=== PATIENT | female | born 1990 | race Caucasian/White ===

== ENCOUNTER 2020-04-09 11:41 | Outpatient (CLI) | payer MEDICAID, SELFPAY ==
--- NOTE | ~2020-04-09 | US_ITS ---
CORRECTED REPORT DESCRIPTION CORRECTED. 04/10/2020 SE EXAMINATION: US OB <=14 wk fetus w TV DATE: 04/09/2020 12:33 INDICATION: Ectopic with pelvic pain TECHNIQUE: Real-time pelvic ultrasound utilizing both a transvaginal and transabdominal probe was performed. The interpreting radiologist was not present for the study. COMPARISON: None. FINDINGS: The uterus measures 6.7 x 5.2 x 4.6 cm. There is an intrauterine gestational sac. A yolk sac and pole are identified. The crown rump length measures 6 mm, which correlates with an estimated gestational age of 6 weeks and 5 days. heart motion is identified measuring 120 beats per minute (bpm) by M-mode Doppler. 1.9 x 1.2 x 0.3 cm hypoechoic subchorionic hematoma. The right ovary measures 4.1 x 3.0 x 4.0 cm. 2.0 cm thick-walled centrally cystic likely corpus luteum cyst in the right ovary. The left ovary measures 2.5 x 2.1 x 2.6 cm. There are several additional subcentimeter ovarian cysts/follicles in both ovaries, more numerous on the left. There is small amount of anechoic free fluid in the pelvis on both the left and right adnexa. IMPRESSION: 1. Single living fetus with heart rate of 120 bpm. 2. Gestational age by ultrasound of 6 weeks 3 day(s) +/- 4 day(s) with ultrasound estimated date of delivery (JT) of 11/30/2020. 3. Small subchorionic hematoma. Reviewed, dictated and finalized at location B. MTDD IMPRESSION: 1. Single living fetus with heart rate of 120 bpm. 2. Gestational age by ultrasound of 6 weeks 3 day(s) +/- 4 day(s) with ultraso und estimated date of delivery (JT) of 11/30/2020. 3. Small subchorionic hematoma.
== END 2020-04-09 11:42 | disposition home or self-care (01) ==
PROVIDERS: Visit Provider Obstetrics & Gynecology
DX: O46.91 Antepartum hemorrhage, unspecified, first trimester (principal); Z3A.01 Less than 8 weeks gestation of pregnancy
CPT/HCPCS: 76801; 76817

== ENCOUNTER 2020-04-10 11:39 | Outpatient (CLI) | payer OTHER, MEDICAID, SELFPAY ==
[2020-04-10 13:50] LABS: Hemoglobin 14.1 g/dL (12.0-15.0); Mean Corpuscular HGB Conc 34.4 g/dl (32-36); Mean Corpuscular Hemoglobin 30.3 pg (26-34); Mean Corpuscular Volume 88.2 fl (80-100); Mean Platelet Volume 10.6 fl (7.4-10.4); Platelet Count Result 319 k/mm3 (150-375); Red Blood Count 4.65 M/mm3 (4.2-5.4); Red Cell Distribution Width 13.2 % (11.5-14.5); White Blood Count 8.8 K/mm3 (4.5-10.0)
[2020-04-10 14:06] LABS: Glucose 146 mg/dL (65-105)
[2020-04-10 14:46] LABS: HIV 1/2 Ab P24 Ag Result Negative (Negative)
[2020-04-10 14:59] LABS: Hepatitis B Surface Antigen Negative (Negative)
[2020-04-10 15:04] LABS: Rubella IgG Antibody 27.4 IU/ML
[2020-04-13 08:57] LABS: Rapid Plasma Reagin Non-Reactive (NonReactive)
[2020-04-14 14:29] LABS: Varicella IgM Antibody <=0.90 (<=0.90)
== END 2020-04-10 11:40 | disposition home or self-care (01) ==
LOC: ANHLAB 11:43
PROVIDERS: Visit Provider Obstetrics & Gynecology
DX: N92.5 Other specified irregular menstruation (principal); E66.9 Obesity, unspecified
CPT/HCPCS: 36415; 82947; 84702; 85027; 85461; 86592; 86644; 86703; 86747; 86762; 86787; 87086; 87088; 87340; G0432

== ENCOUNTER 2021-09-23 10:53 | Outpatient (CLI) | payer BC, SELFPAY ==
--- NOTE | ~2021-09-23 | XR_ITS ---
EXAMINATION: XR chest 2V DATE: 09/23/2021 12:06 INDICATION: Productive cough. Left-sided chest pain. TECHNIQUE: PA and lateral views of the chest were obtained. COMPARISON: None FINDINGS: The lungs are clear with no focal airspace opacities, pulmonary edema, pleural effusion or pneumothor ax. The cardiomediastinal silhouette is normal. Visualized bones and soft tissues are unremarkable. IMPRESSION: 1. Normal chest radiograph. Reviewed, dictated and finalized at location A. WORKER IMPRESSION: 1. Normal chest radiograph.
[2021-09-23 11:21] LABS: Basophils Absolute Auto 0.1 K/mm3 (0.0-0.1); Basophils Percent Auto 0.5 % (0.2-1.2); Eosinophils Absolute Auto 0.1 K/mm3 (0-0.3); Eosinophils Percent Auto 1.2 % (0-4.4); Hematocrit 40.6 % (37.0-47.0); Hemoglobin 13.6 g/dL (12.0-15.0); Immature Granulocyte Absolute 0.02 K/mm3 (0.00-0.031); Immature Granulocyte Percent A 0.2 % (0-0.5); Lymphocytes Absolute Auto 3.46 K/mm3 (0.9-3.2); Lymphocytes Percent Auto 34.7 % (18.3-44.2); Mean Corpuscular HGB Conc 33.5 g/dl (32-36); Mean Corpuscular Hemoglobin 30.8 pg (26-34); Mean Corpuscular Volume 91.9 fl (80-100); Monocytes Absolute Auto 0.7 K/mm3 (0.1-0.6); Monocytes Percent Auto 6.5 % (2.6-8.5); Neutrophils Absolute Auto 5.7 K/mm3 (1.3-6.7); Neutrophils Percent Auto 56.9 % (45.5-73.1); Platelet Count Result 420 k/mm3 (150-375); Red Blood Count 4.42 M/mm3 (4.2-5.4); Red Cell Distribution Width 13.3 % (11.5-14.5)
--- NOTE | 2021-09-23 11:33 | ECG_ITS ---
Measurements Intervals [place] Rate: 71 P: 52 MI: 150 QRS: 14 QRSD: 89 T: 31 QT: 391 QTc: 425 Interpretive Statements SINUS RHYTHM BORDERLINE T WAVE ABNORMALITY- ANT/INF LEADS BASELINE ARTIFACT- II, III, AVF, V4 BORDERLINE ECG Electronically Signed On 09-23-2021 12:25:51 [employer] by Mars Hernandez D.O.
[2021-09-23 11:35] LABS: Alanine Aminotransferase 22 U/L (4-35); Albumin Level 4.3 g/dL (3.5-5.1); Alkaline Phosphatase 44 U/L (38-126); Amylase 62 U/L (30-110); Anion Gap 8 mmol/L (8-16); Aspartate Amino Transferase 23 U/L (14-36); Bilirubin,Total 0.4 mg/dL (0.2-1.3); Blood Urea Nitrogen 12 mg/dL (7-17); Calcium 9.1 mg/dL (8.4-10.2); Carbon Dioxide 28 mmol/L (22-30); Chloride 102 mmol/L (98-107); Cholesterol 251 mg/dL (0-200); Estimated Glomerular Filt Rate > 60; Glucose 101 mg/dL (65-110); HDL Direct 61 mg/dL; Lipase 68 U/L (23-300); Potassium 3.5 mmol/L (3.4-5.0); Sodium 138 mmol/L (137-145); Triglycerides 179 mg/dL (<150)
[2021-09-23 11:43] LABS: LDL Cholesterol Direct 137 mg/dL
--- NOTE | 2021-09-27 13:30 | WPDHOLTEREM ---
Holter/Event Monitor Holter/Event Monitor Date of procedure: 09/23/21 Holter/Event Procedure: 24 Hr Holter Monitor Indications: Palpitations Conclusion: 1. 24 hour holter monitor on 09/23/21. 2. Underlying rhythm is sinus rhythm. HR range 48-129 bpm; average HR 72 bpm. 3. There are 3 premature supraventricular complexes and 1 supraventricular couplet. No supraventricular tachycardia. 4. No premature ventricular complexes. No ventricular tachycardia. 5. No sinoatrial or atrioventricular blocks. No significant pauses greater than 2 seconds. 6. Patient reports symptoms of chest pain, shortness of breath, rib pain, abdominal pain which demonstrate sinus rhythm, HR range 66-115 bpm.
== END 2021-09-23 10:54 | disposition home or self-care (01) ==
PROVIDERS: PCP Family Medicine; Visit Provider Nurse Practitioner Family
DX: R10.9 Unspecified abdominal pain (principal); Z13.29 Encounter for screening for other suspected endocrine disorder; Z13.220 Encounter for screening for lipoid disorders; R00.2 Palpitations
CPT/HCPCS: 36415; 71046; 80053; 80061; 82150; 83690; 84443; 85025; 93005; 93225; 93226

== ENCOUNTER 2021-10-29 06:48 | Outpatient (CLI) | payer BC, SELFPAY ==
--- NOTE | 2021-10-29 07:26 | ECHO_ITS ---
Patient Info Name: Jessica Jolley Age: 31 years : 1990 Gender: Female Ht: 64 in Wt: 230 lbs BSA: 2.22 m2 BP: 144 / 86 mmHg Technical Quality: Excellent Exam Date: 10/29/2021 7:42 AM Exam Location: [facility] Pulmonary Patient Status: Outpatient Admit Date: 10/29/2021 Staff Ordering Physician: Mars Hernandez DO Garment Turner: Gareth Reyes RDCS, RT Attending Provider: Mars Hernandez DO Referring Physician: Erin Reddy PAC; Exam Type: CA echo doppler color flow Study Info Indications R06.02 - Shortness of breath Complete two-dimensional, color flow and Doppler transthoracic echocardiogram is performed. Strain analysis performed. Summary 1. Complete two-dimensional, color flow and Doppler transthoracic echocardiogram is performed. 2. Left ventricular chamber dimension is normal. 3. Left ventricular systolic function is normal, estimated at 60-65%. 4. The left ventricular diastolic function is normal. 5. E/e' 5 is not elevated. 6. Global longitudinal strain is normal at -18.9%. 7. There is trace tricuspid valve regurgitation. 8. There is trace pulmonic regurgitation. Left Ventricle E/e' 5 is not elevated. Global longitudinal strain is normal at -18.9%. Left ventricular chamber dimension is normal. Left ventricular systolic function is normal, estimated at 60-65%. The left ventricular diastolic function is normal. Right Ventricle Right ventricular systolic function is normal and with normal TAPSE 2.8 cm. Right ventricular chamber dimension is normal. Left Atria Left atrial chamber dimension is normal. Right Atria Right atrial chamber dimension is normal. Aortic Valve The aortic valve is trileaflet. There is no aortic valve stenosis. There is no aortic valve regurgitation. Pulmonic Valve There is trace pulmonic regurgitation. Mitral Valve There is no mitral valve stenosis. There is no mitral valve regurgitation. Tricuspid Valve There is trace tricuspid valve regurgitation. RVSP is not calculated due to an inadequate TR jet. Pericardium/Pleural There is no pericardial effusion. Inferior Vena Cava Normal inferior vena cava with >50% collapse upon inspiration consistent with normal right atrial pressure, 5 mmHg. Aorta The aortic root size at the sinus of Valsalva is normal. Left Ventricular Outflow Tract Name Value Normal LVOT 2D LVOT Diameter 2.1 cm LVOT Doppler LVOT Peak Gradient 2 mmHg LVOT Mean Gradient 1 mmHg LVOT VTI 14 cm LVOT VTI/AV VTI Ratio 0.7 LVOT Stroke Volume 52 ml LVOT CO 3.6 l/min LVOT CI 1.6 l/min/m2 Mitral Valve Name Value Normal MV Doppler MV Decel [place] 376 cm/s2
[2021-10-29 07:48] LABS: Basophils Absolute Auto 0.1 K/mm3 (0.0-0.1); Basophils Percent Auto 0.7 % (0.2-1.2); Eosinophils Absolute Auto 0.1 K/mm3 (0-0.3); Eosinophils Percent Auto 1.2 % (0-4.4); Immature Granulocyte Absolute 0.02 K/mm3 (0.00-0.031); Immature Granulocyte Percent A 0.3 % (0-0.5); Lymphocytes Absolute Auto 2.52 K/mm3 (0.9-3.2); Lymphocytes Percent Auto 33.3 % (18.3-44.2); Mean Corpuscular HGB Conc 33.3 g/dl (32-36); Mean Corpuscular Hemoglobin 30.6 pg (26-34); Mean Corpuscular Volume 91.8 fl (80-100); Mean Platelet Volume 10.1 fl (7.4-10.4); Monocytes Absolute Auto 0.5 K/mm3 (0.1-0.6); Monocytes Percent Auto 6.9 % (2.6-8.5); Neutrophils Absolute Auto 4.4 K/mm3 (1.3-6.7); Neutrophils Percent Auto 57.6 % (45.5-73.1); Platelet Count Result 382 k/mm3 (150-375); Red Blood Count 4.25 M/mm3 (4.2-5.4); Red Cell Distribution Width 13.4 % (11.5-14.5); White Blood Count 7.6 K/mm3 (4.5-10.0)
== END 2021-10-29 06:49 | disposition home or self-care (01) ==
PROVIDERS: PCP Family Medicine; Referring Provider Physician Assistant Medical; Visit Provider Internal Medicine Cardiovascular Disease
DX: R79.89 Other specified abnormal findings of blood chemistry (principal); R06.00 Dyspnea, unspecified
CPT/HCPCS: 36415; 85025; 93306

== ENCOUNTER 2021-11-18 10:50 | Outpatient (CLI) | payer BC, SELFPAY ==
--- NOTE | ~2021-11-18 | US_ITS ---
EXAMINATION: US abdomen complete EXAM DATE: 11/18/2021 11:25 INDICATION: unspecified abdominal pain. TECHNIQUE: Multiple grayscale and Doppler images of the complete abdomen were obtained (by a technolo gist who performed the scan) and subsequently reviewed. Correlation is made to CT abdomen pelvis 04/04. FINDINGS: The abdominal aorta is normal in caliber. Visualized portion IVC is patent. The pancreas is obscu red by overlying bowel gas. The liver has normal echogenicity and contour. There are no focal liver lesions identified. There is no evidence of intrahepatic biliary duct dilation. Portal venous flow was seen in the hepatopedal , normal direction and has normal Doppler waveform. Common bile duct measures 3 mm, which is normal. The gallbladder fossa is unremarkable. Right kidney: There is normal contour and echogenicity. It measures 10.3 x 4.7 x 4.9 centimeters. There are no focal renal lesions identified. There is no hydronephrosis. Left kidney: There is normal contour and echogenicity. It measures 10.3 x 4.9 x 5.4 centimeters. T here are no focal renal lesions identified. There is no hydronephrosis. The spleen measures 11.9 centimeters and is morphologically normal. IMPRESSION: Unremarkable complete abdominal ultrasound exam. Reviewed, dictated and finalized at location B.
[2021-11-18 11:26] LABS: Basophils Percent Auto 0.5 % (0.2-1.2); Eosinophils Absolute Auto 0.1 K/mm3 (0-0.3); Eosinophils Percent Auto 1.1 % (0-4.4); Hematocrit 39.9 % (37.0-47.0); Hemoglobin 13.3 g/dL (12.0-15.0); Immature Granulocyte Absolute 0.01 K/mm3 (0.00-0.031); Immature Granulocyte Percent A 0.1 % (0-0.5); Lymphocytes Percent Auto 27.9 % (18.3-44.2); Mean Corpuscular HGB Conc 33.3 g/dl (32-36); Mean Corpuscular Hemoglobin 30.8 pg (26-34); Mean Corpuscular Volume 92.4 fl (80-100); Mean Platelet Volume 10.1 fl (7.4-10.4); Monocytes Absolute Auto 0.4 K/mm3 (0.1-0.6); Monocytes Percent Auto 5.7 % (2.6-8.5); Neutrophils Absolute Auto 4.9 K/mm3 (1.3-6.7); Neutrophils Percent Auto 64.7 % (45.5-73.1); Platelet Count Result 368 k/mm3 (150-375); Red Blood Count 4.32 M/mm3 (4.2-5.4); Red Cell Distribution Width 13.2 % (11.5-14.5); White Blood Count 7.5 K/mm3 (4.5-10.0)
[2021-11-18 11:37] LABS: Rheumatoid Factor < 8.6 IU/ML (<12)
[2021-11-18 11:39] LABS: CRP 1.9 mg/dL (<1.0)
[2021-11-18 12:03] LABS: Erythrocyte Sedimentation Rate 22 mm/hr (0-20)
== END 2021-11-18 10:51 | disposition home or self-care (01) ==
LOC: ANHIMG 10:52
PROVIDERS: PCP Family Medicine; Visit Provider Nurse Practitioner Family
DX: R10.9 Unspecified abdominal pain (principal); M25.50 Pain in unspecified joint
CPT/HCPCS: 36415; 76700; 85025; 85652; 86038; 86140; 86430

== ENCOUNTER 2021-11-26 10:42 | Outpatient (CLI) | payer BC, SELFPAY ==
--- NOTE | 2021-11-26 11:07 | EST_ITS ---
Patient Info Name: Jessica Jolley Age: 31 years : 1990 Gender: Female Ht: 64 in Wt: 235 lbs BSA: 2.25 m2 HR: 73 bpm BP: 152 / 62 mmHg Heart Rhythm: Sinus Rhythm Exam Date: 11/26/2021 11:19 AM Exam Location: [facility] Stress Patient Status: Outpatient Admit Date: 11/26/2021 Staff Ordering Physician: Mars Hernandez DO Attending Provider: Mars Hernandez DO Exercise Technologist: Na Wagner CT Exercise Physician: Mars Hernandez DO Exam Type: CA stress test treadmill Study Info Indications R07.9 - Chest pain, unspecified An exercise stress test was performed. Summary 1. 1. Negative Abimael exercise stress test for ischemic ST changes by ECG criteria. 2. 2. Reduced functional capacity, achieving 7.7 METs of workload. 3. 3. Appropriate HR response to exercise. 4. 4. Appropriate HR recovery at 1 minute post exercise. 5. 5. No imaging with stress testing. 6. 6. Patient informed of the above results. Protocol: Abimael Stress ECG Details Stage: REST Duration (min): 0 min : 59 sec Speed (mph): 0.0 Grade (%): 0 HR (bpm): 73 SBP (mmHg): 108 DBP (mmHg): 69 METS: --- Stage: REST Duration (min): 7 min : 4 sec Speed (mph): 0.0 Grade (%): 0 HR (bpm): 80 SBP (mmHg): 108 DBP (mmHg): 69 METS: --- Stage: STAGE 1 Duration (min): 1 min : 0 sec Speed (mph): 1.7 Grade (%): 10 HR (bpm): 111 SBP (mmHg): 108 DBP (mmHg): 69 METS: --- Stage: STAGE 1 Duration (min): 2 min : 0 sec Speed (mph): 1.7 Grade (%): 10 HR (bpm): 127 SBP (mmHg): 108 DBP (mmHg): 69 METS: --- Stage: STAGE 1 Duration (min): 3 min : 0 sec Speed (mph): 1.7 Grade (%): 10 HR (bpm): 140 SBP (mmHg): 131 DBP (mmHg): 94 METS: --- Stage: STAGE 2 Duration (min): 1 min : 0 sec Speed (mph): 2.5 Grade (%): 12 HR (bpm): 158 SBP (mmHg): 131 DBP (mmHg): 94 METS: --- Stage: STAGE 2 Duration (min): 2 min : 0 sec Speed (mph): 2.5 Grade (%): 12 HR (bpm): 164 SBP (mmHg): 152 DBP (mmHg): 65 METS: --- Stage: STAGE 2 Duration (min): 3 min : 0 sec Speed (mph): 2.5 Grade (%): 12 HR (bpm): 174 SBP (mmHg): 152 DBP (mmHg): 65 METS: --- Stage: STAGE 3 Duration (min): 0 min : 20 sec Speed (mph): 3.4 Grade (%): 14 HR (bpm): 177 SBP (mmHg): 152 DBP (mmHg): 65 METS: --- Stage: RECOVERY Duration (min): 0 min : 40 sec Speed (mph): 0.0 Grade (%): 0 HR (bpm): 164 SBP (mmHg): 152 DBP (mmHg): 65 METS: --- Stage: RECOVERY Duration (min): 1 min : 40 sec Speed (mph): 0.0 Grade (%): 0 HR (bpm): 132 SBP (mmHg): 189 DBP (mmHg): 59 METS: --- Stage: RECOVERY Duration (min): 2 min : 40 sec Speed (mph): 0.0 Grade (%): 0 HR (bpm): 100 SBP (mmHg): 189 DBP (mmHg): 59 METS: ---
== END 2021-11-26 10:43 | disposition home or self-care (01) ==
LOC: ANHCARD 10:43
PROVIDERS: PCP Family Medicine; Visit Provider Internal Medicine Cardiovascular Disease
DX: R07.9 Chest pain, unspecified (principal)
CPT/HCPCS: 93017

== ENCOUNTER 2021-12-09 12:54 | Outpatient (CLI) | payer BC, SELFPAY ==
--- NOTE | ~2021-12-09 | MR_ITS ---
EXAMINATION: MR brain/brain stem wo con DATE: 12/09/2021 13:38 INDICATION: Headache, unspecified. TECHNIQUE: Magnetic resonance imaging (MRI) of the brain and brainstem was performed without intraven ous contrast. COMPARISON: None. FINDINGS: There is no intracranial hemorrhage, acute infarction, or abnormal intracranial mass lesion . The ventricles are normal in size. The paranasal sinuses are clear. The orbits are normal. The mast oid air cells are normal. IMPRESSION: 1. Normal brain. Reviewed, dictated and finalized at location A. IMPRESSION: 1. Normal brain.
== END 2021-12-09 12:55 | disposition home or self-care (01) ==
PROVIDERS: PCP Family Medicine; Visit Provider Nurse Practitioner Family
DX: R51.9 Headache, unspecified (principal)
CPT/HCPCS: 70551

== ENCOUNTER 2023-04-15 10:40 | Outpatient (CLI) | payer BC, SELFPAY ==
[2023-04-15 11:43] LABS: Anion Gap 7 mmol/L (8-16); Blood Urea Nitrogen 10 mg/dL (7-17); Carbon Dioxide 28 mmol/L (22-30); Chloride 104 mmol/L (98-107); Sodium 139 mmol/L (137-145)
[2023-04-15 11:44] LABS: Calcium 8.8 mg/dL (8.4-10.2); Cholesterol 236 mg/dL (0-200); Estimated Glomerular Filt Rate > 60; Glucose 92 mg/dL (65-110); HDL Direct 56 mg/dL; Triglycerides 108 mg/dL (<150)
[2023-04-15 11:54] LABS: LDL Cholesterol Direct 146 mg/dL
[2023-04-15 12:14] LABS: Thyroid Stimulating Hormone 0.906 uIU/mL (0.465-4.680)
== END 2023-04-15 10:41 | disposition home or self-care (01) ==
LOC: ANHLAB 10:41
PROVIDERS: PCP Family Medicine; Visit Provider Nurse Practitioner Family
DX: Z13.1 Encounter for screening for diabetes mellitus (principal); Z13.220 Encounter for screening for lipoid disorders; G43.909 Migraine, unspecified, not intractable, without status migrainosus; Z13.29 Encounter for screening for other suspected endocrine disorder
CPT/HCPCS: 36415; 80048; 80061; 84443